=== PATIENT | female | born 1950 | race Two or more races ===

== ENCOUNTER 2020-11-20 11:26 | Emergency (ER) | payer OTHER ==
[~2020-11-20] VITALS: Ht 160 cm; Wt 65.8 kg
== END 2020-11-20 14:47 | disposition home or self-care (01) ==
LOC: ER 11:26
DX: S90.01XA Contusion of right ankle, initial encounter (principal); S30.0XXA Contusion of lower back and pelvis, initial encounter; W18.39XA Other fall on same level, initial encounter; Y93.89 Activity, other specified; Y92.59 Other trade areas as the place of occurrence of the external cause; Y99.8 Other external cause status